=== PATIENT | female | born 1985 | race Caucasian/White ===

== ENCOUNTER 2017-10-19 16:24 | Inpatient (IN) | payer OTHER ==
[2017-10-19] MEDS ORDERED: PEPCID IV ONE (16:35)
[2017-10-19] MEDS ORDERED: NACL 0.9% 1000 ML 1,000 ML ONE (16:35)
[2017-10-19] MEDS ORDERED: BENADRYL ONE (16:36)
[2017-10-19] MEDS ORDERED: NACL 0.9% 1000 ML IV ONE (16:59)
[2017-10-19] MEDS ORDERED: TYLENOL PO PRN ×2 (16:59→22:01)
[2017-10-19] MEDS ORDERED: ROCEPHIN/NS 2 GM/100 ML 2 GM/100 ML BAG IV SCH (17:00)
[2017-10-19] MEDS ORDERED: GUAIFENESIN DM SYRUP PO ONE (17:01)
--- NOTE | 2017-10-19 17:04 | Emergency Department Report ---
HPI - General Chief Complaint: Dyspnea/Respdistress Time Seen by Provider: 10/19/17 16:47 - HPI HPI: The patient is a 32 year old female who presents for evaluation of dyspnea and cough. The patient reports cough and progressive dyspnea for the past 4 days, constant and severe for the past one day, exacerbated with exertion/ambulation, and associated with 4 days of soreness of the throat, dizziness, generalized myalgias, and rash. She submits that she has experienced a waxing and waning diffuse red spots for the past 3-6 months. Her mother shares that she has had on and off fevers for the past couple of days. The patient denies headache, neck stiffness or neck pain, parasthesias, dyspnea, cough, hemoptysis, palpitations, dizziness, syncope, unilateral leg swelling, calf muscle pain. ED Past Medical Hx - Past Medical History Previous Medical History?: No - Surgical History Past Surgical History?: No - Social History Smoking Status: Never Smoker Substance Use Type: None - Medications Home Medications: Home Medications Medication Instructions Recorded Confirmed Last Taken Type No Known Home Medications [No 10/19/17 10/19/17 Unknown History Reported Home Medications] ED Review of Systems ROS: Stated complaint: ALLERGIC REACTION Other details as noted in HPI Constitutional: denies: fever ENT: denies: throat or neck pain Respiratory: reports cough, shortness of breath Cardiovascular: denies: chest pain Endocrine: denies unexplained weight loss or gain Gastrointestinal: denies: abdominal pain, nausea Genitourinary: denies: dysuria Musculoskeletal: denies: leg swelling Skin: denies: rash Neurological: denies: headache Hematological/Lymphatic: denies: easy bleeding or easy bruising Psych: denies sadness or hopelessness Physical Exam - Physical Exam Vital Signs: Vital Signs 10/19/17 16:57 Temperature 100.9 F H Pulse Rate 108 H Respiratory 18 Rate Blood Pressure 98/72 O2 Sat by Pulse 100 Oximetry Physical Exam: General: well-nourished, well-developed, no acute distress Head: Normocephalic, atraumatic Eyes: normal sclera ENT: Mucous membranes are pale and dry Neck: No neck stiffness, no cervical adenopathy Respiratory: Diminished breath sounds in mild bibasilar rales present Cardio: S1 and S2 present, no murmurs, rubs, gallops, capillary refill is delayed Abdomen: Normoactive bowel sounds, soft abdomen, no rigidity, no guarding or rebound tenderness Chest WALL/Back: No tenderness to palpation of the chest wall, no CVA tenderness with percussion Musc: No pitting edema Skin: No rash Neuro: no facial drooping, normal speech Psych: Normal affect ED Course Vital Signs 10/19/17 16:57 Temperature 100.9 F H Pulse Rate 108 H Respiratory 18 Rate Blood Pressure 98/72 O2 Sat by Pulse 100 Oximetry ED Medical Decision Making - Lab Data Result diagrams: 10/19/17 16:54 10/19/17 18:18 - Medical Decision Making The patient was seen and examined by myself. The patient is placed on a cardiac catheterization technician and continuous pulse ox. On initial evaluation, the patient was found to be lethargic, with low oxygen saturation in the 70s on room air, tachypnea, tachycardia, and febrile, temperature 100.9F. Evaluation orders were placed. The patient is given 30 cc/kg normal saline fluid bolus, Tylenol for fever, and placed on supp oxygen. The patient's O2 saturation quickly normalized. Multiple bedside reassessments were performed to assess patient's responsiveness to fluids resuscitation and some and oxygen. X-ray of the chest reveals bilateral periocular interstitial infiltrates and peribronchial inflammation. IV Rocephin and Levaquin ordered for treatment of the patient's pneumonia. Lab results revealed elevated WBC of 14. The on-call [facility] physician Dr. Lucia was contacted. She agreed to the patient's admission to this Hospital facility. The on-call hospitalist service was contacted. They agreed to admit the patient for further treatment and close monitoring. The ED admit order was placed. The patient was admitted in guarded condition. Critical care attestation.: If time is entered above; I have spent that time in minutes in the direct care of this critically ill patient, excluding procedure time. ED Disposition Clinical Impression: Dehydration, Orthostatic syncope, Hypoxemia Pneumonia Qualifiers: Pneumonia type: due to unspecified organism Laterality: bilateral Lung location : lower lobe of lung Qualified Code(s): J18.1 - Lobar pneumonia, unspecified organism Sepsis Qualifiers: Sepsis type: sepsis due to unspecified organism Qualified Code(s): A41.9 - Sepsis, unspecified organism Disposition: OP ADMIT IP TO THIS HOSP Is pt being admited?: Yes Does the pt Need Aspirin: Yes Condition: Serious Instructions: Syncope (ED), Bacterial Pneumonia (ED) Referrals: PRIMARY CARE, [Primary Care Provider] - 3-5 Days Time of Disposition: 18:10
[2017-10-19] MEDS ORDERED: BENADRYL IV ONE (17:17)
[2017-10-19 17:27] LABS: Basophils # (Auto) 0.2 K/mm3 (0.0-0.1); Basophils % (Auto) 1.2 % (0.0-1.8); Eosinophils # (Auto) 0.2 K/mm3 (0.0-0.4); Eosinophils % (Auto) 1.1 % (0.0-4.3); Hematocrit 43.2 % (30.3-42.9); Hemoglobin 14.1 gm/dl (10.1-14.3); Lymphocytes # (Auto) 1.6 K/mm3 (1.2-5.4); Lymphocytes % (Auto) 11.1 % (13.4-35.0); Mean Corpuscular HGB Conc 33 % (30-34); Mean Corpuscular Hemoglobin 27 pg (28-32); Mean Corpuscular Volume 82 fl (79-97); Monocytes # (Auto) 0.6 K/mm3 (0.0-0.8); Monocytes % (Auto) 3.9 % (0.0-7.3); Platelet Count 348 K/mm3 (140-440); Red Blood Count 5.24 M/mm3 (3.65-5.03); Red Cell Distribution Width 14.3 % (13.2-15.2)
[2017-10-19 17:41] LABS: Bacteria,Urine 2+ /HPF (Negative); Bilirubin,Urine NEG (Negative); Blood,Urine NEG (Negative); Color,Urine Amber (Yellow); Mucus,Urine 1+ /HPF
[2017-10-19 17:53] LABS: Erythrocyte Sedimentation Rate 2 mm/Hr (0-20)
--- NOTE | 2017-10-19 17:57 | XRay Report ---
FINAL REPORT EXAM: XR CHEST 1V AP HISTORY: cough and fever TECHNIQUE: Single, portable chest x-ray. PRIORS: None. FINDINGS: Cardiac and mediastinal silhouette within normal limits. Lungs are normally expanded, with some increased interstitial markings and peribronchial thickening centrally. No focal consolidation or apparent pneumothorax. Bony thorax grossly unremarkable. IMPRESSION: 1. Findings which may represent nonspecific postinflammatory change or bronchitis. 2. No acute consolidation.
[2017-10-19 17:59] LABS: C-Reactive Protein 4.7 mg/dL (0.00-1.30)
[2017-10-19 18:08] LABS: Blood Urea Nitrogen TNR mg/dL (7-17)
[2017-10-19 18:09] LABS: Alanine Aminotransferase TNR units/L (7-56); BUN/Creatinine Ratio TNR; Calcium TNR mg/dL (8.4-10.2)
[2017-10-19] MEDS ORDERED: NACL 0.9% 500 ML 500 ML ONE (18:09)
[2017-10-19 18:10] LABS: Albumin TNR g/dL (3.9-5)
[2017-10-19 18:11] LABS: Hemolysis Index TNR
[2017-10-19] MEDS: LEVAQUIN 750MG/150ML 750 MG/150 ML BAG IV SCH (18:26)
[2017-10-19 19:11] LABS: Alanine Aminotransferase 152 units/L (7-56); Albumin 2.8 g/dL (3.9-5); BUN/Creatinine Ratio 28; Blood Urea Nitrogen 11 mg/dL (7-17); Calcium 6.9 mg/dL (8.4-10.2); Hemolysis Index 23
[2017-10-19] MEDS ORDERED: cefTRIAXone 2 GM in NACL 0.9% 20 ML IV SCH (20:00)
[2017-10-19] MEDS ORDERED: NACL 0.9% 1000 ML 2,000 ML ONE (21:44)
[2017-10-19] MEDS ORDERED: NACL 0.9% 1000 ML 1,000 ML IV ONE (21:52)
[2017-10-19] MEDS ORDERED: ZOFRAN IV PRN (22:01)
[2017-10-19] MEDS ORDERED: SODIUM CHLORIDE FLUSH SYRINGE 10 ML IV PRN (22:01)
--- NOTE | 2017-10-19 22:03 | History and Physical Report ---
History of Present Illness Date of examination: 10/19/17 History of present illness: 32-year-old woman with medical problems comes emergency room with complaints of cough productive of white phlegm, shortness of breath that started yesterday. Also complaining of fever and chills. Mom at bedside state that she has been having right spots over her body over the last 4 months that waxes and wanes, she doesn't denies using any new products, even new foods Review of systems Constitutional: no weight loss, chills Ears, eyes, nose, mouth and throat: no nasal congestion, no nasal discharge, no sinus pressure, no vision change, no red eye. Neck: No neck pain or rigidity. Cardiovascular: no chest pain, palpitations Respiratory: + cough, shortness of breath Gastrointestinal: no abdominal pain, hematochezia Genitourinary : no dysuria, frequency , no hematuria Musculoskeletal: no joint swelling or muscle ache Integumentary: no rash, no pruritis Neurological: no parathesias, no numbness, no focal weakness Endocrine: no cold or heat intolerance, no polyuria or polydipsia Hematologic/Lymphatic: no easy bruising, no easy bleeding, no gland swelling Allergic/Immunologic: no urticaria, no angioedema. PAST MEDICAL HISTORY: None PAST SURGICAL HISTORY: None SOCIAL HISTORY: Denies alcohol, tobacco, drug FAMILY HISTORY: Hypertension Medications and Allergies Allergies Allergy/AdvReac Type Severity Reaction Status Date / Time No Known Allergies Allergy Unverified 10/19/17 17:00 Home Medications Medication Instructions Recorded Confirmed Last Taken Type Cetirizine HCl [Zyrtec] 10 mg PO QAM #30 tablet 10/20/17 Unknown Rx Famotidine [Pepcid] 20 mg PO BID #30 tablet 10/20/17 Unknown Rx diphenhydrAMINE [Benadryl CAP] 25 mg PO QHS PRN #30 capsule 10/20/17 Unknown Rx Active Meds: Active Medications Acetaminophen (Tylenol) 650 mg PO Q6H PRN PRN Reason: Pain, Mild (1-3) Last Admin: 10/19/17 17:16 Dose: 650 mg Levofloxacin/Dextrose (Levaquin 750mg/150ml) 750 mg in 150 mls @ 100 mls/hr IV Q24HR [facility]; Protocol Last Admin: 10/19/17 18:26 Dose: 100 mls/hr Ceftriaxone Sodium 2 gm/ (Sodium Chloride) 20 mls @ 2 mls/min IV Q24HR [facility] Last Admin: 10/19/17 20:19 Dose: 2 mls/min Sodium Chloride (Nacl 0.9% 1000 Ml) 1,000 mls @ 999 mls/hr IV BOLUS ONE Stop: 10/19/17 22:52 Last Admin: 10/19/17 21:53 Dose: 999 mls/hr Exam - Physical Exam Narrative exam: Gen. appearance: Patient lying in bed, no apparent distress HEENT: Normocephalic, atraumatic, pupils equally round and reactive to light, extraocular movement intact, and no sclericterus,. No JVD or thyromegaly or nodule,neck supple, no carotid bruit ,mucous membranes moist, no exudate or erythema Heart: S1, S2, regular rate and rhythm Lungs: Decreased breath sound at bases bilaterally, breathing comfortable Abdomen: Positive bowel sounds, nontender, nondistended, no organomegaly Extremity: No edema, cyanosis, clubbing Skin: No rash, nodules, warm, dry Neuro: Oriented 3, cranial nerves II-12 intact, speech is fluent, motor and sensory intact - Constitutional Vitals: Temp Pulse Resp BP Pulse Ox 98.4 F 95 H 19 98/59 97 10/19/17 19:15 10/19/17 21:00 10/19/17 21:00 10/19/17 21:00 10/19/17 21:00 Results - Labs CBC & Chem 7: 10/20/17 06:43 10/20/17 06:43 Labs: Abnormal lab results 10/19/17 10/19/17 10/19/17 Range/Units 16:37 16:54 16:54 WBC 14.4 H (4.5-11.0) K/mm3 RBC 5.24 H (3.65-5.03) M/mm3 Hct 43.2 H (30.3-42.9) % MCH 27 L (28-32) pg Lymph % (Auto) 11.1 L (13.4-35.0) % Baso # 0.2 H (0.0-0.1) K/mm3 Seg Neutrophils % 82.7 H (40.0-70.0) % Seg Neutrophils # 11.9 H (1.8-7.7) K/mm3 POC ABG pCO2 (35-45) POC ABG pO2 (80-105) Creatinine (0.7-1.2) mg/dL Glucose (65-100) mg/dL POC Glucose 124 H (70-105) Calcium (8.4-10.2) mg/dL AST (5-40) units/L ALT (7-56) units/L C-Reactive Protein 4.70 H (0.00-1.30) mg/dL Total Protein (6.3-8.2) g/dL Albumin (3.9-5) g/dL Urine WBC (Auto) (0.0-6.0) /HPF 10/19/17 10/19/17 10/19/17 Range/Units 18:18 19:00 Unknown WBC (4.5-11.0) K/mm3 RBC (3.65-5.03) M/mm3 Hct (30.3-42.9) % MCH (28-32) pg Lymph % (Auto) (13.4-35.0) % Baso # (0.0-0.1) K/mm3 Seg Neutrophils % (40.0-70.0) % Seg Neutrophils # (1.8-7.7) K/mm3 POC ABG pCO2 28.9 L (35-45) POC ABG pO2 75 L (80-105) Creatinine 0.4 L (0.7-1.2) mg/dL Glucose 109 H (65-100) mg/dL POC Glucose (70-105) Calcium 6.9 L (8.4-10.2) mg/dL AST 248 H (5-40) units/L ALT 152 H (7-56) units/L C-Reactive Protein (0.00-1.30) mg/dL Total Protein 4.7 L (6.3-8.2) g/dL Albumin 2.8 L (3.9-5) g/dL Urine WBC (Auto) 31.0 H (0.0-6.0) /HPF - Imaging and Cardiology Chest x-ray: image reviewed Assessment and Plan Assessment SIRS Abnormal LFTs Rash Plan Admit to medicine Obtain CAT scan of the chest, continue antibiotic, nebulizer treatment Follow cultures, DVT prophylaxis Addendum CT negative, consult pulmonary
[2017-10-19] MEDS: NACL 0.9% 1000 ML 1,000 ML IV SCH (23:09)
--- NOTE | 2017-10-19 23:14 | Cat Scan Report ---
FINAL REPORT PROCEDURE: CT ANGIO CHEST TECHNIQUE: Computerized tomographic angiography of the chest was performed after the IV injection of iodinated nonionic contrast including image processing. The image data was postprocessed using 2-dimensional multiplanar reformatted (MPR) and 3-dimensional (MIP and/or volume rendered) techniques. HISTORY: hypoxia, sob COMPARISON: Chest radiograph of the same date FINDINGS: Heart and pericardium: Normal. Thoracic aorta: Normal. Pulmonary vasculature: Normal. Lymph nodes: No enlarged thoracic lymph nodes. Lungs: Normal. Pleural space: No effusion, thickening, or pneumothorax. Musculoskeletal structures: No significant abnormality. Upper abdominal structures: No significant abnormality. IMPRESSION: There is no evidence of pulmonary arterial emboli. The lungs are clear without infiltrate, effusion or pneumothorax.
[2017-10-20] MEDS: BENADRYL IV PRN ×2 (02:35→09:17)
[2017-10-20] MEDS: NACL 0.9% 1000 ML 1,000 ML IV SCH (06:38)
[2017-10-20 08:14] LABS: Basophils % (Auto) 0.3 % (0.0-1.8); Eosinophils # (Auto) 0.1 K/mm3 (0.0-0.4); Hematocrit 39.5 % (30.3-42.9); Hemoglobin 13.3 gm/dl (10.1-14.3); Lymphocytes # (Auto) 1.2 K/mm3 (1.2-5.4); Lymphocytes % (Auto) 10.4 % (13.4-35.0); Mean Corpuscular HGB Conc 34 % (30-34); Mean Corpuscular Hemoglobin 28 pg (28-32); Mean Corpuscular Volume 82 fl (79-97); Monocytes # (Auto) 0.3 K/mm3 (0.0-0.8); Monocytes % (Auto) 2.7 % (0.0-7.3); Platelet Count 239 K/mm3 (140-440); Red Blood Count 4.79 M/mm3 (3.65-5.03); Red Cell Distribution Width 13.8 % (13.2-15.2)
[2017-10-20 08:37] LABS: BUN/Creatinine Ratio 13; Blood Urea Nitrogen 4 mg/dL (7-17); Calcium 7.1 mg/dL (8.4-10.2); Hemolysis Index 8
[2017-10-20] MEDS: LEVAQUIN 750MG/150ML 750 MG/150 ML BAG IV SCH (09:16)
[2017-10-20] MEDS: LOVENOX SUB-Q SCH ×2 (09:17→11:58)
[2017-10-20] MEDS ORDERED: SODIUM CHLORIDE FLUSH SYRINGE 10 ML IV SCH (10:00)
[2017-10-20] MEDS: PROVENTIL IH SCH ×3 (10:04→17:08)
--- NOTE | 2017-10-20 13:02 | Consultation ---
History of Present Illness Consult date: 10/20/17 Requesting physician: AMBAR DIXON Reason for consult: dyspnea History of present illness: 32 y/o female admitted with multiple symptoms, including dyspnea. ptient was also febrile, tachycardic and had a diffuse, non specific rash. CTA was done which was negative for PE as well as any other acute lung process. Patient started on abx therapy. Today she is on room air, and has no shortness of breath. Past History Past Medical History: No medical history Past Surgical History: No surgical history Social history: no significant social history Family history: no significant family history Medications and Allergies Allergies Allergy/AdvReac Type Severity Reaction Status Date / Time No Known Allergies Allergy Unverified 10/19/17 17:00 Home Medications Medication Instructions Recorded Confirmed Last Taken Type No Known Home Medications [No 10/19/17 10/19/17 Unknown History Reported Home Medications] Active Meds: Active Medications Acetaminophen (Tylenol) 650 mg PO Q4H PRN PRN Reason: Pain MILD(1-3)/Fever >100.5/SORIANO Albuterol (Proventil) 2.5 mg IH Q4HRT [facility] Last Admin: 10/20/17 10:04 Dose: 2.5 mg Diphenhydramine HCl (Benadryl) 25 mg IV Q6H PRN PRN Reason: for itch relief Last Admin: 10/20/17 09:17 Dose: 25 mg Enoxaparin Sodium (Lovenox) 40 mg SUB-Q QDAY [facility] Last Admin: 10/20/17 11:58 Dose: Not Given Levofloxacin/Dextrose (Levaquin 750mg/150ml) 750 mg in 150 mls @ 100 mls/hr IV Q24HR [facility]; Protocol Last Admin: 10/20/17 09:16 Dose: 100 mls/hr Sodium Chloride (Nacl 0.9% 1000 Ml) 1,000 mls @ 150 mls/hr IV DIRECT [facility] Last Admin: 10/20/17 06:38 Dose: 150 mls/hr Ondansetron HCl (Zofran) 4 mg IV Q8H PRN PRN Reason: Nausea And Vomiting Sodium Chloride (Sodium Chloride Flush Syringe 10 Ml) 10 ml IV BID [facility] Last Admin: 10/20/17 09:17 Dose: 10 ml Sodium Chloride (Sodium Chloride Flush Syringe 10 Ml) 10 ml IV PRN PRN PRN Reason: LINE FLUSH Review of Systems All systems: negative Physical Examination Vital signs: Vital Signs Pulse Ox 77 L 10/19/17 16:32 Effort: normal Ascultation: Bilateral: clear Results - Laboratory Findings CBC and BMP: 10/20/17 06:43 10/20/17 06:43 ABG POC ABG pH 7.391 (7.35-7.45) 10/19/17 19:00 POC ABG pCO2 28.9 (35-45) L 10/19/17 19:00 POC ABG pO2 75 (80-105) L 10/19/17 19:00 POC ABG HCO3 17.5 10/19/17 19:00 POC ABG Total CO2 18 10/19/17 19:00 POC ABG O2 Sat 95 10/19/17 19:00 Abnormal lab findings: Abnormal Labs 10/19/17 10/19/17 10/19/17 16:37 16:54 16:54 WBC 14.4 H RBC 5.24 H Hct 43.2 H MCH 27 L Lymph % (Auto) 11.1 L Baso # 0.2 H Seg Neutrophils % 82.7 H Seg Neutrophils # 11.9 H POC ABG pCO2 POC ABG pO2 Chloride Carbon Dioxide BUN Creatinine Glucose POC Glucose 124 H Calcium AST ALT C-Reactive Protein 4.70 H Total Protein Albumin Urine WBC (Auto) 10/19/17 10/19/17 10/19/17 18:18 19:00 Unknown WBC RBC Hct MCH Lymph % (Auto) Baso # Seg Neutrophils % Seg Neutrophils # POC ABG pCO2 28.9 L POC ABG pO2 75 L Chloride Carbon Dioxide BUN Creatinine 0.4 L Glucose 109 H POC Glucose Calcium 6.9 L AST 248 H ALT 152 H C-Reactive Protein Total Protein 4.7 L Albumin 2.8 L Urine WBC (Auto) 31.0 H 10/20/17 10/20/17 06:43 06:43 WBC 11.8 H RBC Hct MCH Lymph % (Auto) 10.4 L Baso # Seg Neutrophils % 85.6 H Seg Neutrophils # 10.1 H POC ABG pCO2 POC ABG pO2 Chloride 109.9 H Carbon Dioxide 19 L BUN 4 L Creatinine 0.3 L Glucose POC Glucose Calcium 7.1 L AST ALT C-Reactive Protein Total Protein Albumin Urine WBC (Auto) - Diagnostic Findings CT scan - chest: image reviewed Assessment and Plan 32 y/o female with acute onset of shortness of breath, in the face of a possible allergic reaction and UTI 1. Lungs are stable, respiratory distress has resolved. Most likely a systemic reaction to infection, inflammation. No acute disease in the actual lung. 2. Will sign off.
[2017-10-20 13:05] LABS: Hepatitis A Antibody IgM Non-Reactive (NonReactive); Hepatitis B Core IgM Non-Reactive (NonReactive); Hepatitis B Surface Antigen Non-Reactive (Negative); Hepatitis C Virus Antibody Non-Reactive (NonReactive)
--- NOTE | 2017-10-20 14:21 | Gastroenterology Consultation ---
<CLARKLEROY - Last Filed: 10/20/17 14:12> History of Present Illness - Reason for Consult Consult date: 10/20/17 Elevated liver enzymes - History of Present Illness Ms Romero is a 32 y/o female admitted with nonspecific rash over her body that has been going on for several months- progressing. The reddened areas cause itching. 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 She reports a recent fever. She was noted on admission to have elevated liver enzymes therefore consult was obtained. She states she was told several months ago by her primary that her liver enzymes were elevated at that time but workup was not done. She denies ETOH use, no new medications, except adderall ( stared 5-6 months ago, rash was prior and she was told liver enzymes were elevated prior to this). No liver disease in family hx. No tick bites or travel. She has been on steroids in the past for the rash but her rash continues to get worse. She state she use to take tylenol frequently but has not taken any in several months. She notes weight loss since starting adderall. Past History Past Medical History: No medical history Past Surgical History: No surgical history Social history: no significant social history. denies: alcohol abuse Family history: no significant family history Medications and Allergies Allergies Allergy/AdvReac Type Severity Reaction Status Date / Time No Known Allergies Allergy Unverified 10/19/17 17:00 Home Medications Medication Instructions Recorded Confirmed Last Taken Type No Known Home Medications [No 10/19/17 10/19/17 Unknown History Reported Home Medications] Active Meds: Active Medications Acetaminophen (Tylenol) 650 mg PO Q4H PRN PRN Reason: Pain MILD(1-3)/Fever >100.5/SORIANO Albuterol (Proventil) 2.5 mg IH Q4HRT [facility] Last Admin: 10/20/17 10:04 Dose: 2.5 mg Diphenhydramine HCl (Benadryl) 25 mg IV Q6H PRN PRN Reason: for itch relief Last Admin: 10/20/17 09:17 Dose: 25 mg Enoxaparin Sodium (Lovenox) 40 mg SUB-Q QDAY [facility] Last Admin: 10/20/17 11:58 Dose: Not Given Levofloxacin/Dextrose (Levaquin 750mg/150ml) 750 mg in 150 mls @ 100 mls/hr IV Q24HR [facility]; Protocol Last Admin: 10/20/17 09:16 Dose: 100 mls/hr Sodium Chloride (Nacl 0.9% 1000 Ml) 1,000 mls @ 150 mls/hr IV DIRECT [facility]API Last Admin: 10/20/17 06:38 Dose: 150 mls/hr Ondansetron HCl (Zofran) 4 mg IV Q8H PRN PRN Reason: Nausea And Vomiting Sodium Chloride (Sodium Chloride Flush Syringe 10 Ml) 10 ml IV BID PAPI Last Admin: 10/20/17 09:17 Dose: 10 ml Sodium Chloride (Sodium Chloride Flush Syringe 10 Ml) 10 ml IV PRN PRN PRN Reason: LINE FLUSH Review of Systems - Review of Systems Constitutional: weight loss, fever, weakness Integumentary: rash Exam - Constitutional Vital Signs: Temp Pulse Resp BP Pulse Ox 99.1 F 116 H 18 94/52 99 10/20/17 07:41 10/20/17 11:00 10/20/17 10:10 10/20/17 07:41 10/20/17 10:09 General appearance: no acute distress - EENT Eyes: EOM intact ENT: hearing intact - Neck Neck: supple - Respiratory Respiratory: bilateral: CTA - Cardiovascular Rhythm: other (tachycardia) Extremities: pulses intact, No edema - Gastrointestinal General gastrointestinal: Present: soft, non-tender, non-distended - Integumentary Integumentary: Present: warm, dry, rash - Neurologic Neurological: alert and oriented x3 - Psychiatric Psychiatric: appropriate mood/affect, cooperative - Labs CBC & Chem 7: 10/20/17 06:43 10/20/17 06:43 Lab Results: Laboratory Results - last 24 hr 10/19/17 10/19/17 10/19/17 16:37 16:54 16:54 WBC 14.4 H RBC 5.24 H Hgb 14.1 Hct 43.2 H MCV 82 MCH 27 L MCHC 33 RDW 14.3 Plt Count 348 Lymph % (Auto) 11.1 L [place] % (Auto) 3.9 Eos % (Auto) 1.1 Baso % (Auto) 1.2 Lymph # 1.6 [place] # 0.6 Eos # 0.2 Baso # 0.2 H Seg Neutrophils % 82.7 H Seg Neutrophils # 11.9 H ESR 2 POC ABG pH POC ABG pCO2 POC ABG pO2 POC ABG HCO3 POC ABG Total CO2 POC ABG O2 Sat POC ABG Base Excess FiO2 Sodium TNR Potassium TNR Chloride TNR Carbon Dioxide TNR Anion Gap TNR BUN TNR Creatinine TNR Estimated GFR TNR BUN/Creatinine Ratio TNR Glucose TNR POC Glucose 124 H Lactic Acid Calcium TNR Total Bilirubin TNR AST TNR ALT TNR Alkaline Phosphatase TNR Troponin T < 0.010 C-Reactive Protein NT-Pro-B Natriuret Pep Total Protein TNR Albumin TNR Albumin/Globulin Ratio TNR Lipase Urine Color Urine Turbidity Urine pH Ur Specific [place] Urine Protein Urine Glucose (UA) Urine Ketones Urine Blood Urine Nitrite Urine Bilirubin Urine Urobilinogen Ur Leukocyte Esterase Urine WBC (Auto) Urine RBC (Auto) U Epithel Cells (Auto) Urine Bacteria (Auto) Urine Mucus Hepatitis A IgM Ab Hep Bs Antigen Hep B Core IgM Ab Hepatitis C Antibody 10/19/17 10/19/17 10/19/17 16:54 18:18 19:00 WBC RBC Hgb Hct MCV MCH MCHC RDW Plt Count Lymph % (Auto) [place] % (Auto) Eos % (Auto) Baso % (Auto) Lymph # [place] # Eos # Baso # Seg Neutrophils % Seg Neutrophils # ESR POC ABG pH 7.391 POC ABG pCO2 28.9 L POC ABG pO2 75 L POC ABG HCO3 17.5 POC ABG Total CO2 18 POC ABG O2 Sat 95 POC ABG Base Excess -7 FiO2 21 Sodium 138 Potassium 4.3 Chloride 107.0 Carbon Dioxide 22 Anion Gap 13 BUN 11 Creatinine 0.4 L Estimated GFR > 60 BUN/Creatinine Ratio 28 Glucose 109 H POC Glucose Lactic Acid Calcium 6.9 L Total Bilirubin 0.40 AST 248 H ALT 152 H Alkaline Phosphatase 126 Troponin T C-Reactive Protein 4.70 H NT-Pro-B Natriuret Pep 43.84 Total Protein 4.7 L Albumin 2.8 L Albumin/Globulin Ratio 1.5 Lipase 20 Urine Color Urine Turbidity Urine pH Ur Specific [place] Urine Protein Urine Glucose (UA) Urine Ketones Urine Blood Urine Nitrite Urine Bilirubin Urine Urobilinogen Ur Leukocyte Esterase Urine WBC (Auto) Urine RBC (Auto) U Epithel Cells (Auto) Urine Bacteria (Auto) Urine Mucus Hepatitis A IgM Ab Hep Bs Antigen Hep B Core IgM Ab Hepatitis C Antibody 10/19/17 10/19/17 10/20/17 19:59 Unknown 06:43 WBC 11.8 H RBC 4.79 Hgb 13.3 Hct 39.5 MCV 82 MCH 28 MCHC 34 RDW 13.8 Plt Count 239 Lymph % (Auto) 10.4 L [place] % (Auto) 2.7 Eos % (Auto) 1.0 Baso % (Auto) 0.3 Lymph # 1.2 [place] # 0.3 Eos # 0.1 Baso # 0.0 Seg Neutrophils % 85.6 H Seg Neutrophils # 10.1 H ESR POC ABG pH POC ABG pCO2 POC ABG pO2 POC ABG HCO3 POC ABG Total CO2 POC ABG O2 Sat POC ABG Base Excess FiO2 Sodium Potassium Chloride Carbon Dioxide Anion Gap BUN Creatinine Estimated GFR BUN/Creatinine Ratio Glucose POC Glucose Lactic Acid 1.30 Calcium Total Bilirubin AST ALT Alkaline Phosphatase Troponin T C-Reactive Protein NT-Pro-B Natriuret Pep Total Protein Albumin Albumin/Globulin Ratio Lipase Urine Color Meenakshi Urine Turbidity Clear Urine pH 6.0 Ur Specific [place] 1.027 Urine Protein 100 mg/dl Urine Glucose (UA) Neg Urine Ketones Neg Urine Blood Neg Urine Nitrite Neg Urine Bilirubin Neg Urine Urobilinogen 4.0 Ur Leukocyte Esterase Lg Urine WBC (Auto) 31.0 H Urine RBC (Auto) 9.0 U Epithel Cells (Auto) 10.0 Urine Bacteria (Auto) 2+ Urine Mucus 1+ Hepatitis A IgM Ab Hep Bs Antigen Hep B Core IgM Ab Hepatitis C Antibody 10/20/17 10/20/17 06:43 10:24 WBC RBC Hgb Hct MCV MCH MCHC RDW Plt Count Lymph % (Auto) [place] % (Auto) Eos % (Auto) Baso % (Auto) Lymph # [place] # Eos # Baso # Seg Neutrophils % Seg Neutrophils # ESR POC ABG pH POC ABG pCO2 POC ABG pO2 POC ABG HCO3 POC ABG Total CO2 POC ABG O2 Sat POC ABG Base Excess FiO2 Sodium 139 Potassium 3.7 Chloride 109.9 H Carbon Dioxide 19 L Anion Gap 14 BUN 4 L Creatinine 0.3 L Estimated GFR > 60 BUN/Creatinine Ratio 13 Glucose 99 POC Glucose Lactic Acid Calcium 7.1 L Total Bilirubin AST ALT Alkaline Phosphatase Troponin T C-Reactive Protein NT-Pro-B Natriuret Pep Total Protein Albumin Albumin/Globulin Ratio Lipase Urine Color Urine Turbidity Urine pH Ur Specific [place] Urine Protein Urine Glucose (UA) Urine Ketones Urine Blood Urine Nitrite Urine Bilirubin Urine Urobilinogen Ur Leukocyte Esterase Urine WBC (Auto) Urine RBC (Auto) U Epithel Cells (Auto) Urine Bacteria (Auto) Urine Mucus Hepatitis A IgM Ab Non-reactive Hep Bs Antigen Non-reactive Hep B Core IgM Ab Non-reactive Hepatitis C Antibody Non-reactive Assessment and Plan 1. Elevated liver enzymes -Abdominal US -Hepatitis Panel -Check INR -TB WNL, Platelets WNL -No new medications or ETOH use. No recent Tylenol use -Unclear is this is related to rash/ fever -Per pt she was told her liver enzymes were elevated around the time of the start of the rash. 2. Rash with fever, mild leukocytosis 3. Dyspnea -Now resolved, seen by Pulm -CTA negative. <RHIANNA SCALES R - Last Filed: 10/20/17 16:31> Medications and Allergies Active Meds: Active Medications Acetaminophen (Tylenol) 650 mg PO Q4H PRN PRN Reason: Pain MILD(1-3)/Fever >100.5/SORIANO Albuterol (Proventil) 2.5 mg IH Q4HRT [facility] Last Admin: 10/20/17 14:30 Dose: Not Given Diphenhydramine HCl (Benadryl) 25 mg IV Q6H PRN PRN Reason: for itch relief Last Admin: 10/20/17 09:17 Dose: 25 mg Enoxaparin Sodium (Lovenox) 40 mg SUB-Q QDAY [facility] Last Admin: 10/20/17 11:58 Dose: Not Given Levofloxacin/Dextrose (Levaquin 750mg/150ml) 750 mg in 150 mls @ 100 mls/hr IV Q24HR [facility]; Protocol Last Admin: 10/20/17 09:16 Dose: 100 mls/hr Sodium Chloride (Nacl 0.9% 1000 Ml) 1,000 mls @ 150 mls/hr IV DIRECT [facility] Last Admin: 10/20/17 06:38 Dose: 150 mls/hr Ondansetron HCl (Zofran) 4 mg IV Q8H PRN PRN Reason: Nausea And Vomiting Sodium Chloride (Sodium Chloride Flush Syringe 10 Ml) 10 ml IV BID [facility] Last Admin: 10/20/17 09:17 Dose: 10 ml Sodium Chloride (Sodium Chloride Flush Syringe 10 Ml) 10 ml IV PRN PRN PRN Reason: LINE FLUSH Exam - Constitutional Vital Signs: Temp Pulse Resp BP Pulse Ox 97.9 F 116 H 16 96/51 99 10/20/17 12:08 10/20/17 11:00 10/20/17 12:08 10/20/17 12:08 10/20/17 10:09 - Labs CBC & Chem 7: 10/20/17 06:43 10/20/17 06:43 Lab Results: Laboratory Results - last 24 hr 10/19/17 10/19/17 10/19/17 16:37 16:54 16:54 WBC 14.4 H RBC 5.24 H Hgb 14.1 Hct 43.2 H MCV 82 MCH 27 L MCHC 33 RDW 14.3 Plt Count 348 Lymph % (Auto) 11.1 L [place] % (Auto) 3.9 Eos % (Auto) 1.1 Baso % (Auto) 1.2 Lymph # 1.6 [place] # 0.6 Eos # 0.2 Baso # 0.2 H Seg Neutrophils % 82.7 H Seg Neutrophils # 11.9 H ESR 2 PT INR POC ABG pH POC ABG pCO2 POC ABG pO2 POC ABG HCO3 POC ABG Total CO2 POC ABG O2 Sat POC ABG Base Excess FiO2 Sodium TNR Potassium TNR Chloride TNR Carbon Dioxide TNR Anion Gap TNR BUN TNR Creatinine TNR Estimated GFR TNR BUN/Creatinine Ratio TNR Glucose TNR POC Glucose 124 H Lactic Acid Calcium TNR Total Bilirubin TNR AST TNR ALT TNR Alkaline Phosphatase TNR Troponin T < 0.010 C-Reactive Protein NT-Pro-B Natriuret Pep Total Protein TNR Albumin TNR Albumin/Globulin Ratio TNR Lipase Urine Color Urine Turbidity Urine pH Ur Specific [place] Urine Protein Urine Glucose (UA) Urine Ketones Urine Blood Urine Nitrite Urine Bilirubin Urine Urobilinogen Ur Leukocyte Esterase Urine WBC (Auto) Urine RBC (Auto) U Epithel Cells (Auto) Urine Bacteria (Auto) Urine Mucus Hepatitis A IgM Ab Hep Bs Antigen Hep B Core IgM Ab Hepatitis C Antibody 10/19/17 10/19/17 10/19/17 16:54 18:18 19:00 WBC RBC Hgb Hct MCV MCH MCHC RDW Plt Count Lymph % (Auto) [place] % (Auto) Eos % (Auto) Baso % (Auto) Lymph # [place] # Eos # Baso # Seg Neutrophils % Seg Neutrophils # ESR PT INR POC ABG pH 7.391 POC ABG pCO2 28.9 L POC ABG pO2 75 L POC ABG HCO3 17.5 POC ABG Total CO2 18 POC ABG O2 Sat 95 POC ABG Base Excess -7 FiO2 21 Sodium 138 Potassium 4.3 Chloride 107.0 Carbon Dioxide 22 Anion Gap 13 BUN 11 Creatinine 0.4 L Estimated GFR > 60 BUN/Creatinine Ratio 28 Glucose 109 H POC Glucose Lactic Acid Calcium 6.9 L Total Bilirubin 0.40 AST 248 H ALT 152 H Alkaline Phosphatase 126 Troponin T C-Reactive Protein 4.70 H NT-Pro-B Natriuret Pep 43.84 Total Protein 4.7 L Albumin 2.8 L Albumin/Globulin Ratio 1.5 Lipase 20 Urine Color Urine Turbidity Urine pH Ur Specific [place] Urine Protein Urine Glucose (UA) Urine Ketones Urine Blood Urine Nitrite Urine Bilirubin Urine Urobilinogen Ur Leukocyte Esterase Urine WBC (Auto) Urine RBC (Auto) U Epithel Cells (Auto) Urine Bacteria (Auto) Urine Mucus Hepatitis A IgM Ab Hep Bs Antigen Hep B Core IgM Ab Hepatitis C Antibody 10/19/17 10/19/17 10/20/17 19:59 Unknown 06:43 WBC 11.8 H RBC 4.79 Hgb 13.3 Hct 39.5 MCV 82 MCH 28 MCHC 34 RDW 13.8 Plt Count 239 Lymph % (Auto) 10.4 L [place] % (Auto) 2.7 Eos % (Auto) 1.0 Baso % (Auto) 0.3 Lymph # 1.2 [place] # 0.3 Eos # 0.1 Baso # 0.0 Seg Neutrophils % 85.6 H Seg Neutrophils # 10.1 H ESR PT INR POC ABG pH POC ABG pCO2 POC ABG pO2 POC ABG HCO3 POC ABG Total CO2 POC ABG O2 Sat POC ABG Base Excess FiO2 Sodium Potassium Chloride Carbon Dioxide Anion Gap BUN Creatinine Estimated GFR BUN/Creatinine Ratio Glucose POC Glucose Lactic Acid 1.30 Calcium Total Bilirubin AST ALT Alkaline Phosphatase Troponin T C-Reactive Protein NT-Pro-B Natriuret Pep Total Protein Albumin Albumin/Globulin Ratio Lipase Urine Color Meenakshi Urine Turbidity Clear Urine pH 6.0 Ur Specific [place] 1.027 Urine Protein 100 mg/dl Urine Glucose (UA) Neg Urine Ketones Neg Urine Blood Neg Urine Nitrite Neg Urine Bilirubin Neg Urine Urobilinogen 4.0 Ur Leukocyte Esterase Lg Urine WBC (Auto) 31.0 H Urine RBC (Auto) 9.0 U Epithel Cells (Auto) 10.0 Urine Bacteria (Auto) 2+ Urine Mucus 1+ Hepatitis A IgM Ab Hep Bs Antigen Hep B Core IgM Ab Hepatitis C Antibody 10/20/17 10/20/17 10/20/17 06:43 10:24 15:52 WBC RBC Hgb Hct MCV MCH MCHC RDW Plt Count Lymph % (Auto) [place] % (Auto) Eos % (Auto) Baso % (Auto) Lymph # [place] # Eos # Baso # Seg Neutrophils % Seg Neutrophils # ESR PT 14.9 INR 1.11 POC ABG pH POC ABG pCO2 POC ABG pO2 POC ABG HCO3 POC ABG Total CO2 POC ABG O2 Sat POC ABG Base Excess FiO2 Sodium 139 Potassium 3.7 Chloride 109.9 H Carbon Dioxide 19 L Anion Gap 14 BUN 4 L Creatinine 0.3 L Estimated GFR > 60 BUN/Creatinine Ratio 13 Glucose 99 POC Glucose Lactic Acid Calcium 7.1 L Total Bilirubin AST ALT Alkaline Phosphatase Troponin T C-Reactive Protein NT-Pro-B Natriuret Pep Total Protein Albumin Albumin/Globulin Ratio Lipase Urine Color Urine Turbidity Urine pH Ur Specific [place] Urine Protein Urine Glucose (UA) Urine Ketones Urine Blood Urine Nitrite Urine Bilirubin Urine Urobilinogen Ur Leukocyte Esterase Urine WBC (Auto) Urine RBC (Auto) U Epithel Cells (Auto) Urine Bacteria (Auto) Urine Mucus Hepatitis A IgM Ab Non-reactive Hep Bs Antigen Non-reactive Hep B Core IgM Ab Non-reactive Hepatitis C Antibody Non-reactive Assessment and Plan Pt denies known liver disease. Her hepatitis serologies and liver U/S are normal. Creatine kinase is pending. She needs outpatient evaluation of LFT abnormality, to see if this is acute or chronic. As regards rash, pt advised to ensure she has been checked for celiac disease, polymyositis, and get a Dermatology evaluation. Okay to D/C from GI standpoint.
[2017-10-20 14:26] VITALS: BP 96/51
--- NOTE | 2017-10-20 16:07 | Ultrasound Report ---
FINAL REPORT EXAM: US ABDOMEN COMPLETE HISTORY: transaminitis TECHNIQUE: Directed sonography of the upper abdomen. PRIORS: None. FINDINGS: Gallbladder of normal size and echogenicity without evidence of calculi. Wall thickness within normal limits. Intra-and extrahepatic bile ducts are of normal caliber. The liver has normal homogeneous echogenicity without focal abnormalities. Right kidney measures 10.2 cm in longest dimension and left kidney measures 11.0 cm in longest dimension. No significant hydronephrosis. Visualized spleen and pancreatic parenchyma grossly unremarkable. Visualized abdominal aorta and IVC grossly unremarkable. IMPRESSION: 1. No acute findings.
[2017-10-20 16:15] LABS: INR 1.11 (0.87-1.13)
--- NOTE | 2017-10-20 16:36 | Discharge Summary ---
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 Admitted for sepsis uti. -Sepsis UTI: change iv abx to oral and d/c home, follow up urine ctx with [employer] [facility], d/w Dr. Alva -Diffuse Urticaria: Dr. Burton recommends Dr. Lissa Lee -Elevated transaminases, see gi note Disposition: DC-01 TO HOME OR SELFCARE Time spent for discharge: 32 minutes Core Measure Documentation - Palliative Care Palliative Care/ Comfort Measures: Not Applicable - Core Measures Any of the following diagnoses?: none - VTE Discharge Requirements Deep Vein Thrombosis/Pulmonary Embolism Present on Admission: No Has pt received <5 days of overlap therapy or INR<2.0: No Anticoagulant overlap therapy prescribed at discharge: No Contraindication No Overlap Therapy order at DC: Not Indicated Exam - Physical Exam Narrative exam: GEN: WDWN, NAD, Awake, Alert, Orientated HEENT: NCAT, EOMI, PERRL, OP Clear NECK: supple, no adenopathy, no thyromegaly, no JVD CVS/HEART: RRR, normal S1S2, pulses present bilaterally CHEST/LUNGS: CTA B, Symmetrical chest expansion, good air entry bilaterally GI/Abdomen: soft, NTND, good bowel sounds, no guarding or rebound /Bladder: no suprapubic tenderness, no CVA or paraspinal tenderness EXT/Skin: diffuse urticaria rash, neck to toes MSK: FROM x 4 Neuro: CN 2-12 grossly intact, no new focal deficits Psych: calm - Constitutional Vitals: Temp Pulse Resp BP Pulse Ox 97.9 F 116 H 16 96/51 99 10/20/17 12:08 10/20/17 11:00 10/20/17 12:08 10/20/17 12:08 10/20/17 10:09 Plan Activity: other Additional Instructions: follow up urine culture, sign release/Authorization form prior to discharge. see Dr. Lissa Gutierrez [phone], Dermatology. [address] [facility] [address], [place] [id number]. regarding Urticaria, she is very good per Dr. Burton with Urticaria, may have to pay out of pocket if not approved by [employer] Follow up with: PRIMARY CARE, [Primary Care Provider] - 3-5 Days Prescriptions: diphenhydrAMINE [Benadryl CAP] 25 mg PO QHS PRN #30 capsule PRN Reason: Itching Cetirizine HCl [Zyrtec] 10 mg PO QAM #30 tablet Famotidine [Pepcid] 20 mg PO BID #30 tablet
== END 2017-10-20 17:15 | disposition home or self-care (01) | DRG 871 ==
LOC: ED 16:24 → 4A 22:02
PROVIDERS: ADMIT Internal Medicine; ATTEND Internal Medicine
PROC: 4A033R1 Measurement of Arterial Saturation, Peripheral, Percutaneous Approach (ICD-10-PCS; principal; 2017-10-19)
DX: A41.9 Sepsis, unspecified organism (principal); J18.9 Pneumonia, unspecified organism; N39.0 Urinary tract infection, site not specified; R09.02 Hypoxemia; R06.03 Acute respiratory distress; E86.0 Dehydration; R55 Syncope and collapse; Z82.49 Family history of ischemic heart disease and other diseases of the circulatory system
CPT/HCPCS: 36415; 71045; 71275; 76700; 80048; 80053; 80074; 81001; 82140; 82330; 82550; 82803; 82962; 83690; 83880; 84484; 85025; 85610; 85652; 86140; 87040; 87086; 93005; 93010; 94640; J0696; J1200; J1650; J1956; J2930; J7030; J7040; Q9967